=== PATIENT | male | born 1955 | race Caucasian/White ===

== ENCOUNTER → 2021-09-13 16:02 | Outpatient (CLI) | payer BC, SELFPAY ==
--- NOTE | 2021-09-13 16:09 | DI.RAD.S_ITS ---
PROCEDURE: XR ANKLE RT MIN 3V INDICATIONS: ANKLE SWELLING TECHNIQUE: 3 views of the ankle were acquired. COMPARISON: None. FINDINGS: Bones: No fractures or dislocations. Ankle mortise is normally aligned. No suspicious bony lesions. Prominent plantar calcaneal enthesophyte and small retrocalcaneal bone spur. Soft tissues: No tibiotalar joint effusion. Achilles tendon appears normal. Lateral malleolar soft tissue swelling. IMPRESSION: Although no bony erosions are identified, plain film radiography is relatively insensitive in the acute phases of osteomyelitis and may not demonstrate radiographic changes for 15 days. If acute osteomyelitis is of clinical concern, nuclear medicine regional bone scan or MRI is recommended. Dictated by: Blayne Tavarez [facility] Interpreted: Karissa Hunter MD on 09/13/2021 at 16:43 Transcribed by: RONEN on 09/13/2021 at 16:43 Approved by: Karissa Hunter M.D. on 09/13/2021 at 17:28
== END ==
PROVIDERS: PCP Internal Medicine; Referring Provider Internal Medicine; Visit Provider Internal Medicine
DX: M25.471 Effusion, right ankle (principal)
CPT/HCPCS: 73610

== ENCOUNTER → 2024-06-23 10:52 | Outpatient (CLI) | payer MEDICARE, SELFPAY ==
--- NOTE | 2024-06-23 10:54 | DI.RAD.S_ITS ---
PROCEDURE: XR FOOT LT MIN 3V INDICATIONS: Progressive left 1st metatarsal pain TECHNIQUE: 3 views of the foot were acquired. COMPARISON: None. FINDINGS: Bones: No fractures or dislocations. No suspicious bony lesions. 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 Soft tissues: No tibiotalar joint effusion. Achilles tendon appears normal. 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 Dictated by: Karissa Hunter M.D. on 06/23/2024 at 15:56 Approved by: Karissa Hunter M.D. on 06/23/2024 at 15:56
== END ==
PROVIDERS: PCP Family Medicine; Referring Provider Family Medicine; Visit Provider Family Medicine
DX: M79.672 Pain in left foot (principal); E78.1 Pure hyperglyceridemia; I10 Essential (primary) hypertension
CPT/HCPCS: 73630

== ENCOUNTER 2024-07-21 09:07 | Day surgery (SDC) | payer MEDICARE, SELFPAY ==
--- NOTE | 2024-07-21 | PATH_ITS ---
[facility] Accession Number: [id number] No. of containers..01 Tissue . 01 Material submitted: . colon - DESCENDING POLYPS . 01 Diagnosis: DESCENDING COLON POLYPS: Tubular adenoma and hyperplastic polyps. MRV 07/27/2024 1403 Local . 01 Electronically signed: . Eduardo Mann MD, PhD, Pathologist NPI- [id number] . 01 Gross description: . DESCENDING POLYPS: Received in formalin are multiple fragment(s) of duvall, soft tissue measuring 0.1 x 0.1 x 0.1 cm to 0.4 x 0.4 x 0.2 cm submitted entirely in 1 cassette(s) /FABIOLA 07/26/2024 0039 Local . 01 Pathologist provided ICD-10: D12.4 . 01 CPT . 125750 Performed at: [address] [id number] MD Tom Coffman MD Phone: [phone]
[2024-07-21 10:30] VITALS: BP 160/100; PULSE 90; RESP 16; TEMP 35.8; O2SAT 99
--- NOTE | 2024-07-21 10:43 | P.HP_ITS ---
History of Present Illness History of Present Illness Date Patient Seen: 07/21/24 Time Patient Seen: 10:43 Chief complaint: Colonoscopy Narrative: John is a 68-year-old man who presents for a colonoscopy. His last one was about 10 years ago and he had no polyps. He did have polyps the first time he had a colonoscopy which was about 15 years ago. No family history of colon cancer. He has had prostate cancer with radiation treatment. [facility], [facility] Medical History Left foot pain Preventative health care Urinary incontinence History of prostate cancer Hypertriglyceridemia Hyperlipidemia Hypertension Social History Smoking Status: Former smoker alcohol intake: current Meds Home Medications and Allergies Home Medications ?Medication ?Instructions ?Recorded ?Confirmed ?Type amlodipine 5 mg tablet 5 mg PO DAILY 11/16/2307/21 History fenofibrate 160 mg tablet 160 mg PO DAILY 11/16/2307/10 History lisinopril 20 mg tablet 20 mg PO DAILY 11/16/2307/10 History sodium,potassium,mag sulfates 17.5 See Rx Instructions PO .COMPLEX 06/16/24 07/21/24 Rx gram-3.13 gram-1.6 gram oral soln #354 mL (Suprep Bowel Prep Kit) albuterol sulfate 90 mcg/actuation 2 puff inhalation Q 6H PRN 06/23/24 07/21/24 Rx aerosol inhaler shortness of breath or wheez ing #8.5 grams Allergies Allergy/AdvReac Type Severity Reaction Status Date / Time No Known Drug Allergies Allergy Unverified 06/23/24 10:03 Exam Const General: No acute distress Resp Effort & Inspection: normal respiratory effort Assessment & Plan Assessment and plan (1) History of colon polyps: Status: Acute Plan Colonoscopy Time-Based Coding :: [TOTAL MINUTES] spent with patient and on the chart (including review of chart, obtaining history, exam, reviewing outside data, placing orders, documenting exam and treatment plan, and counseling patient) on [DATE]. PROFEE Sports Physician Document charge(s): No
[2024-07-21] MEDS: LACTATED RINGERS 1,000 ML 42 ML IV (10:45)
--- NOTE | 2024-07-21 11:41 | PM.HP.IH.1 ---
History of Present Illness History of Present Illness Chief complaint: Colonoscopy Narrative: John is a 68-year-old man who presents for a colonoscopy. His last one was about 10 years ago and he had no polyps. He did have polyps the first time he had a colonoscopy which was about 15 years ago. No family history of colon cancer. He has had prostate cancer with radiation treatment. [facility] Medical History Left foot pain Preventative health care Urinary incontinence History of prostate cancer Hypertriglyceridemia Hyperlipidemia Hypertension Social History Smoking Status: Former smoker alcohol intake: current Meds Home Medications and Allergies Home Medications ?Medication ?Instructions ?Recorded ?Confirmed ?Type amlodipine 5 mg tablet 5 mg PO DAILY 11/16/23 07/21/24 History fenofibrate 160 mg tablet 160 mg PO DAILY 11/16/23 07/21/24 History lisinopril 20 mg tablet 20 mg PO DAILY 11/16/23 07/21/24 History sodium,potassium,mag sulfates 17.5 See Rx Instructions PO .COMPLEX 06/16/24 07/21/24 Rx gram-3.13 gram-1.6 gram oral soln #354 mL (Suprep Bowel Prep Kit) albuterol sulfate 90 mcg/actuation 2 puff inhalation Q6H PRN 06/23/24 07/21/24 Rx aerosol inhaler shortness of breath or wheezing #8.5 grams Allergies Allergy/AdvReac Type Severity Reaction Status Date / Time No Known Drug Allergies Allergy Unverified 06/23/24 10:03 Exam Vital Signs (past 8 hours): - 07/21/24 10:30 Temperature 96.5 F L Pulse Rate 90 Respiratory Rate 16 Blood Pressure 160/100 H Pulse Oximetry 99 Oxygen Delivery Method Room Air Oxygen Delivery Method Room Air Assessment & Plan Assessment and plan (1) History of colon polyps: Status: Acute Plan Colonoscopy Time-Based Coding :: [TOTAL MINUTES] spent with patient and on the chart (including review of chart, obtaining history, exam, reviewing outside data, placing orders, documenting exam and treatment plan, and counseling patient) on [DATE]. PROFEE Human Resources Operations Coordinator Document charge(s): No
--- NOTE | 2024-07-21 11:41 | PM.OP.COLON ---
Operative Date/Time/Diagnoses Date of procedure: 07/21/24 Time of procedure: 11:42 Pre-op diagnosis: History polyps Post-op diagnosis: same Procedure & Clinicians Study performed: Colonoscopy Same procedure as scheduled: Yes Surgeon: Josemanuel Lynn Procedure Notes Procedure in detail: Surgeon: Josemanuel Lynn MD Anesthesia: Vijaya Coker CRNA Procedure: The patient was brought to the endoscopy suite, placed in left lateral decubitus position. The patient was connected to monitoring devices. A time-out was performed. Sedation was administered. Once the patient was adequately sedated, a digital rectal exam was performed and was normal. The scope was then inserted and advanced to the cecum where the appendiceal orifice was identified and photographed. The scope was then slowly withdrawn over greater than 6 minutes. The mucosa was thoroughly inspected. There were two small polyps in the descending colon both removed with a cold snare and sent together. The scope was retroflexed in the rectum. No other abnormalities were found. The scope was straightened and removed. The patient was awakened and brought to recovery. Scope withdrawal time: 10 minutes Sedation time: 11 minutes EBL: 5 mL Findings: Two small polyps in the descending colon removed with a cold snare Post-procedure Disposition: PACU
[2024-07-21 11:43] VITALS: BP 103/73; PULSE 85; RESP 15; TEMP 36.9; O2SAT 95
[2024-07-21 11:49] VITALS: BP 108/71; PULSE 82; RESP 18; TEMP 36.9; O2SAT 98
== END 2024-07-21 12:00 | disposition home or self-care (01) ==
LOC: ENDO 09:08
PROVIDERS: PCP Family Medicine; Referring Provider Surgery; Visit Provider Surgery
PROC: 0DJD8ZZ Inspection of Lower Intestinal Tract, Via Natural or Artificial Opening Endoscopic (ICD-10-PCS; CPT 45378; principal; 2024-07-21 10:30)
DX: Z12.11 Encounter for screening for malignant neoplasm of colon (principal); Z86.0100 Personal history of colon polyps, unspecified; Z87.891 Personal history of nicotine dependence; Z85.46 Personal history of malignant neoplasm of prostate; D12.4 Benign neoplasm of descending colon; K63.5 Polyp of colon
CPT/HCPCS: 45385; J2704